=== PATIENT | female | born 1960 | race Caucasian/White ===

== ENCOUNTER 2017-07-25 23:14 | Outpatient (CLI) | payer BC | END 2017-07-25 23:15 | disposition critical access hospital (66) | LOC: EMS 23:14 | PROVIDERS: ATTEND Surgery | DX: R10.9 Unspecified abdominal pain (principal); R11.2 Nausea with vomiting, unspecified | CPT/HCPCS: A0425; A0427 ==

== ENCOUNTER 2017-07-25 23:30 | Observation (INO) | payer BC ==
--- NOTE | 2017-07-25 23:58 | ED Physician Documentation ---
PD HPI ABD PAIN - Stated complaint Stated Complaint: R LQ ABD PN - Chief complaint Chief Complaint: Abd Pain - History obtained from History obtained from: Patient - History of Present Illness Timing - onset: How many hours ago (about 4), Today Timing - duration: Hours (4) Timing - details: Gradual onset, Still present Quality: Cramping, Aching, Pain Location: Periumbilical, RLQ Radiation: No: Lower back, Left flank, Right flank Improved by: Vomiting Worsened by: Position, Palpation. No: Moving, Breathing Associated symptoms: Nausea, Vomiting, Loss of appetite (today). No: Fever, Diarrhea, Constipation (had BM daily in the recent past; BM earlier today without problems.), Dysuria, Chest pain, Vaginal bleeding, Vaginal dc Similar symptoms before: Has not had sx before Recently seen: Not recently seen Review of Systems Constitutional: denies: Fever, Chills, Myalgias Nose: denies: Rhinorrhea / runny nose, Congestion Throat: denies: Sore throat Respiratory: denies: Cough GI: reports: Abdominal Pain, Nausea, Vomiting. 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 ) HEENT: Tonsil/Adenoidectomy - Present Medications Home Medications: Ambulatory Orders Medication Instructions Recorded Confirmed Sertraline [Zoloft] 25 mg PO DAILY 07/25/17 07/25/17 - Allergies Allergies/Adverse Reactions: Allergies Allergy/AdvReac Type Severity Reaction Status Date / Time No Known Drug Allergies Allergy Verified 07/25/17 23:35 - Social History Does the pt smoke?: No Smoking Status: Never smoker Does the pt drink ETOH?: Yes Does the pt have substance abuse?: No - Family History Family history: reports: Non contributory - Immunizations Immunizations are current?: Yes PD ED PE NORMAL - Vitals Vital signs reviewed: Yes - General General: Alert and oriented X 3, Well developed/nourished, Other (appears in pain and is dry heaving) - HEENT HEENT: Atraumatic, Pharynx benign - Neck Neck: Supple, no meningeal sign, No adenopathy - Cardiac Cardiac: RRR, No murmur - Respiratory Respiratory: Clear bilaterally - Abdomen Abdomen: Soft, Non distended, No organomegaly, Other (active bowel sounds. Tender mid abdomen and lower too, right more than left. No percussion tenderness. ) - Female Female : Deferred - Rectal Rectal: Deferred - Back Back: No CVA TTP - Derm Derm: Normal color - Extremities Extremities: No deformity, No tenderness to palpate, No edema, No calf tenderness / cord - Neuro Neuro: Alert and oriented X 3, No motor deficit, Normal speech Results - Vitals Vitals: Vital Signs - 24 hr 07/25/17 07/26/17 23:31 02:04 Temperature 36.0 C L Heart Rate 63 60 Respiratory 14 14 Rate Blood Pressure 111/65 101/53 L O2 Saturation 100 92 Oxygen O2 Source Room air - Labs Labs: Laboratory Tests 07/25/17 07/25/17 07/26/17 23:00 23:00 01:10 WBC 15.2 H RBC 3.99 L Hgb 12.7 Hct 38.0 MCV 95.2 MCH 31.7 H MCHC 33.3 RDW 13.9 Plt Count 219 MPV 10.2 Neut # 12.9 H Lymph # 1.4 L [place] # 0.8 Eos # 0.0 Baso # 0.1 Absolute Nucleated RBC 0.00 Nucleated RBCs 0.0 Sodium 141 Potassium 3.2 L Chloride 104 Carbon Dioxide 26 Anion Gap 11.0 BUN 12 Creatinine 0.8 Estimated GFR (MDRD) 74 L Glucose 137 H Calcium 9.5 Total Bilirubin 0.3 AST 26 ALT 20 Alkaline Phosphatase 45 Total Protein 6.9 Albumin 4.4 Globulin 2.5 Albumin/Globulin Ratio 1.8 Lipase 29 Urine Color YELLOW Urine Clarity CLEAR Urine pH 6.5 Ur Specific [place] 1.020 Urine Protein NEGATIVE Urine Glucose (UA) NEGATIVE Urine Ketones >=80 H Urine Occult Blood TRACE-INTA Urine Nitrite NEGATIVE Urine Bilirubin NEGATIVE Urine Urobilinogen 0.2 (NORMAL) Ur Leukocyte Esterase NEGATIVE Ur Microscopic Review NOT INDICATED Urine Culture Comments NOT INDICATED - Rads (name of study) abd CT Radiology: Prelim report reviewed (suspicious for early/partial distal small bowel obstruction. also 5x3x5 cm fibroid in uterus. ) PD MEDICAL DECISION MAKING - ED course Complexity details: reviewed results, re-evaluated patient (improved symptoms with still some tenderness mid abdomen. ), considered differential (no signs of kidney stones on CT, no free fluid. Appendix seems okay. There is sign of partial SBO per [facility]. Will place in OBS to see how she does with NPO and fluids /pain meds for treatment. ), d/w patient, d/w golf tournament consultant (hospitalist) Departure - Departure Disposition: 01 Home, Self Care Clinical Impression: Partial small bowel obstruction Abdominal pain Qualifiers: Abdominal location: generalized Qualified Code(s): R10.84 - Generalized abdominal pain Vomiting Qualifiers: Vomiting type: unspecified Vomiting Intractability: non-intractable Nausea presence: with nausea Qualified Code(s): R11.2 - Nausea with vomiting, unspecified Condition: Stable Record reviewed to determine appropriate education?: Yes
[2017-07-26] MEDS ORDERED: ONDANSETRON 4 MG/2 ML VIAL IVP STA (00:30)
[2017-07-26] MEDS ORDERED: SODIUM CHLORIDE 0.9% 1,000 ML IV ONE ×2 (00:30→03:04)
[2017-07-26] MEDS ORDERED: HYDROmorphone 1 MG/ML CARPUJECT IVP STA ×2 (00:30→01:05)
[2017-07-26] MEDS ORDERED: ONDANSETRON 4 MG/2 ML VIAL ONE (00:41)
[2017-07-26] MEDS ORDERED: HYDROmorphone 1 MG/ML CARPUJECT ONE ×2 (00:41→01:20)
[2017-07-26 00:42] LABS: BASOPHILS # (AUTO) 0.1 10^3/uL (0.0-0.1); BASOPHILS % (AUTO) 0.4 %; EOSINOPHILS % (AUTO) 0.1 %; HGB - HEMOGLOBIN 12.7 g/dL (12.0-16.0); LYMPHOCYTES # (AUTO) 1.4 10^3/uL (1.5-3.5); LYMPHOCYTES % (AUTO) 9.4 %; MEAN CORPUSCULAR HEMOGLOBIN 31.7 pg (27.0-31.0); MEAN CORPUSCULAR HGB CONC 33.3 g/dL (32.0-36.0); MEAN CORPUSCULAR VOLUME 95.2 fL (81.0-99.0); MEAN PLATELET VOLUME 10.2 fL (7.9-10.8); MONOCYTES # (AUTO) 0.8 10^3/uL (0.0-1.0); MONOCYTES % (AUTO) 5.2 %; NEUTROPHILS # (AUTO) 12.9 10^3/uL (1.5-6.6); NEUTROPHILS % (AUTO) 84.9 %; RED BLOOD COUNT 3.99 10^6/uL (4.20-5.40); RED CELL DISTRIBUTION WIDTH 13.9 % (12.0-15.0); UNCORRECTED WHITE BLOOD COUNT 15.2 x10^3/uL; WHITE BLOOD COUNT 15.2 x10^3/uL (4.8-10.8)
[2017-07-26 01:04] LABS: ALBUMIN/GLOBULIN RATIO 1.8 (1.0-2.2); BILIRUBIN,TOTAL 0.3 mg/dL (0.2-1.0); CALCIUM 9.5 mg/dL (8.5-10.3); CREATININE 0.8 mg/dL (0.4-1.0); POTASSIUM 3.2 mmol/L (3.5-5.0); TOTAL PROTEIN 6.9 g/dL (6.7-8.2)
[2017-07-26] MEDS ORDERED: IOPAMIDOL-300 100 ML VIAL ONE (01:11)
[2017-07-26 01:22] LABS: BILIRUBIN,URINE NEGATIVE (NEGATIVE); PH,URINE 6.5 PH (5.0-7.5)
[2017-07-26 01:32] LABS: UA CHARGE (STRIP ONLY) YES; UR CULTURE IF IND NOT INDICATED
[2017-07-26] MEDS ORDERED: IOPAMIDOL-300 100 ML VIAL IVP ONE (01:38)
--- NOTE | 2017-07-26 02:01 | CT Preliminary Report ---
Exam: CT Abdomen/Pelvis W/ IMPRESSION: 1. Findings suspicious for early/partial distal small bowel obstruction. Only minimal mesenteric colten a without bowel wall thickening seen. 2. Approximately 5 x 3 x 5 cm anterior uterine mass which displaces the endometrial cavity posteriorl y. Suspect this is a hypervascular fibroid. Nonemergent pelvic ultrasound suggested for further evalu ation. [facility] SITE ID: [id number]
--- NOTE | 2017-07-26 02:07 | CT Report ---
EXAM: CT ABDOMEN AND PELVIS EXAM DATE: 07/26/2017 01:42 AM. CLINICAL HISTORY: Lower/right abdominal pain. COMPARISONS: None. TECHNIQUE: Routine helical CT imaging was performed through the abdomen and pelvis. IV contrast: Yes . Enteric contrast: No . Reconstructions: Coronal and sagittal. In accordance with CT protocol optimization, one or more of the following dose reduction techniques w ere utilized for this exam: automated exposure control, adjustment of mA and/or KV based on patient s ize, or use of iterative reconstructive technique. FINDINGS: Lung Bases: Unremarkable. Liver: Unremarkable. No suspicious masses. Gallbladder/Bile Ducts: Unremarkable. Spleen: Unremarkable. Pancreas: Unremarkable. Adrenal Glands: Unremarkable. Kidneys: Unremarkable. No suspicious masses or hydronephrosis. Peritoneal Cavity/Bowel: Distended stool filled distal small bowel loops in the central and right pel vis without wall thickening and only minimal mesenteric edema. Discrete transition not seen but there made of partial distal bowel obstruction. Bowel otherwise appears unremarkable. Appendix is not visu alized. No free air or fluid. Pelvic Organs: Hypervascular mass centrally within the anterior aspect of the uterus and displacing t he endometrial cavity posteriorly on the sagittal views. This measures approximately 5 x 3 x 5 cm. No suspicious adnexal masses. Urinary bladder appears decompressed but otherwise unremarkable. Vasculature: No aneurysms or other significant abnormality. Bones: No significant abnormality. Other: None. IMPRESSION: 1. Findings suspicious for early/partial distal small bowel obstruction. Only minimal mesenteric colten a without bowel wall thickening seen. 2. Approximately 5 x 3 x 5 cm anterior uterine mass which displaces the endometrial cavity posteriorl y. Suspect this is a hypervascular fibroid. Nonemergent pelvic ultrasound suggested for further evalu ation. [facility] Referring Provider Line: [phone] SITE ID: [id number]
[2017-07-26] MEDS ORDERED: ACETAMINOPHEN 325 MG TABLET PO PRN (02:31)
[2017-07-26] MEDS ORDERED: PROCHLORPERAZINE 10 MG/2 ML VIAL IVP PRN (02:31)
[2017-07-26] MEDS ORDERED: HYDROmorphone 1 MG/ML CARPUJECT IVP PRN (02:31)
[2017-07-26] MEDS ORDERED: oxyCODONE 5 MG TABLET PO PRN (02:31)
[2017-07-26] MEDS ORDERED: SODIUM CHLORIDE FLUSH 0.9% 10 ML SYRINGE IVP PRN (02:31)
--- NOTE | 2017-07-26 02:43 | HISTORY & PHYSICAL EXAMINATION ---
Chief Complaint - Chief Complaint Chief Complaint: Abdominal Pain History of Present Illness - Admitted From Admitted From:: Emergency Department - History Obtained From Records Reviewed: Yes History obtained from: Patient Exam Limitations: None - History of Present Illness HPI Comment/Other: Patient is a 57-year-old female with a past medical history significant for anxiety, depression, GERD, sinusitis and history of skin cancer status post excision who presented to the emergency department with a chief complaint of abdominal pain. The patient states that she was in her normal state of health until about 3 days ago when she states that she started feeling tenderness in her breasts and a cramping abdominal pain in the morning. She states the cramping would come and go over the next 3 days but was never very severe. She states that she felt as though she was about to get her period which she thought was odd because she had not had a period for a year and a half. The patient states that this morning she was in her normal state of health and felt great until 730 this evening. She states that she ate some corn chips and guacamole and then had gone for a walk. She states that during the walk she felt very gassy but was not having any pain at that time. She states that when she returned from her walk she felt some abdominal discomfort and therefore only had a small amount of her dinner and a glass of wine. She states that a little later in the evening she began having abdominal pain. She states it was located in the lower abdomen and then became more localized in the right lower quadrant of the abdomen. She states that it continued to be a cramping pain and was initially coming in waves but then became increasingly intense and constant. She states that she began to feel nauseated and the pain was so severe she could not get up out of bed. Eventually she decided to call EMS. She states that when EMS arrived she had an episode of emesis. Then she states in route to the hospital she had multiple episodes of emesis and continued to have this right lower quadrant abdominal pain. The patient states that her last bowel movement was yesterday however she did have a large bowel movement right before she went for CT scan in the emergency department tonight. She states the bowel movement was well formed and and there was no blood or dark stools. The patient denies any headaches, blurred vision, she does admit to some nasal congestion and sinusitis that has been bothering her for the last 4 months, she also admits to fullness in her left year also has been bothering her for the last month. She denies any fevers or chills, chest pain, orthopnea, PND, increased lower extremity swelling, shortness of air, diarrhea, urinary urgency , urinary frequency, dysuria, joint pains, muscle aches, neck stiffness or any focal neurologic deficits. On presentation to the emergency department the patient was afebrile and vital signs were stable. The patient did appear to be in significant distress secondary to abdominal pain and nausea. The patient underwent routine lab work which did reveal a leukocytosis of 15.2 and that the patient was hypokalemic with a potassium of 3.2. The patient's UA was negative. The patient was given IV fluids, antiemetics and IV pain medication in the emergency department. The patient states that she did feel better with the treatment but was continuing to have some abdominal discomfort and was still not feeling well. The patient underwent a CT of her abdomen and pelvis which revealed early/partial distal small bowel obstruction with only minimal mesenteric edema and no bowel wall thickening. Patient was also found to have a 535 cm anterior uterine mass which was displacing the endometrial cavity posteriorly. The patient was placed in observation for a small bowel obstruction. History - Past Medical History Cardiovascular: reports: None Respiratory: reports: None Neuro: reports: None Endocrine/Autoimmune: reports: None GI: reports: GERD VEGETABLE GROWER: reports: None : reports: None HEENT: reports: Chronic sinusitis Psych: reports: Depression, Anxiety Musculoskeletal: reports: None Derm: reports: Other (Skin cancer status post excision) - Past Surgical History /VEGETABLE GROWER: reports: Other (Uterine Firbroidectomy) HEENT: reports: Tonsil/Adenoidectomy - Family & Social History Family History: Mother: (Mother and father both lived to be 91 years old), Cancer (Breast cancer and melanoma), Father: , Alzheimer's Disease Living arrangement: At home Living Situation: With spouse/s.o. Social History Notes: The patient is originally from [place] but moved to [place] about 20 years ago. She lives in [place] with her . She does not have any children. She is visiting [facility] for a retreat. She is active and does yoga, walks the dog daily for an hour and eats very healthy. The patient has never smoked, she does drink socially and she denies any illicit drug use - Substance History Use: Uses substance without health or social issues: NONE Abuse: Recurrent use of substance despite neg consequences: NONE Dependence: Experiences withdrawal or developed tolerances: NONE - POLST Patient has POLST: No POLST Status: Full Code Meds/Allgy - Home Medications Home Medications: Ambulatory Orders Medication Instructions Recorded Confirmed Sertraline [Zoloft] 25 mg PO DAILY 07/25/17 07/25/17 - Allergies Allergies/Adverse Reactions: Allergies Allergy/AdvReac Type Severity Reaction Status Date / Time No Known Drug Allergies Allergy Verified 07/25/17 23:35 Review of Systems - Other Findings Other Findings: A comprehensive review of systems was performed the pertinent positives and negatives are stated above in the HPI and the remainder of the review of systems is negative. Exam - Vital Signs Reviewed Vital Signs: Yes Vital Signs: Vital Signs x48h Temp Pulse Resp BP Pulse Ox 07/26/17 02:04 60 14 101/53 L 92 07/25/17 23:31 36.0 C L 63 14 111/65 100 - Physical Exam General Appearance: positive: Alert, Mild distress (abdominal pain) Eyes Bilateral: positive: Normal inspection, PERRL, EOMI, No lid inflammation, Conjunctivae nml, No scleral icterus ENT: positive: ENT inspection nml, Pharynx nml, Dry mucous membranes. negative : Purulent nasal drainage, Pharyngeal erythema, Oral lesions Neck: positive: Nml inspection, Thyroid nml, No JVD, Trachea midline. negative : Thyromegaly, Lymphadenopathy (R), Lymphadenopathy (L), Stiff neck, Carotid bruit, Tracheal deviation Respiratory: positive: Chest non-tender, No respiratory distress, Breath sounds nml. negative: Wheezes, Rales, Rhonchi Cardiovascular: positive: Regular rate & rhythm, No murmur, No gallop Peripheral Pulses: positive: 2+ Abdomen: positive: Tenderness (Lower abdomen mostly in the pelvic area and right lower quadrant), Abnml bowel sounds (Decreased). negative: Guarding, Rebound, Hepatomegaly Back: positive: Nml inspection. negative: CVA tenderness (R), CVA tenderness (L ) Skin: positive: Color nml, No rash, Warm. negative: Cyanosis, Pallor Extremities: positive: Non-tender, Full ROM, Nml appearance, No pedal edema Neurologic/Psychiatric: positive: Oriented x3, CN's nml (2-12), Motor nml, Sensation nml, Mood/affect nml Conclusion/Plan - Problem List (1) Small bowel obstruction Conclusion/Plan: The patient presented with abdominal pain in the right lower quadrant. She described as a cramping pain associated with nausea and several episodes of vomiting. Patient was found to have a early/partial small bowel obstruction on CT scan. Patient did have some improvement with IV fluids, IV pain medications and IV antiemetics however the patient was still having pain and tender on exam. She was placed in observation for small bowel obstruction. Plan: IV fluids N.p.o. except meds IV pain medications IV antiemetics Encourage patient to ambulette Advance diet once patient's improving (2) Hypokalemia Conclusion/Plan: Patient presented with a potassium of 3.2 Replace potassium with IV fluid. Monitor potassium (3) Uterine mass Conclusion/Plan: Patient found to have incidental uterine mass on CT scan appears likely to be a fibroid. This is unlikely to be the cause of her abdominal pain. It was recommended that the patient get a nonemergent pelvic ultrasound. Plan: Pelvic ultrasound (4) Depression Conclusion/Plan: Patient has history of depression and anxiety she uses Zoloft at home. We will continue patient's home dose of Zoloft (5) Prophylactic use of low molecular weight heparin for venous thromboembolism (VTE) Conclusion/Plan: Place patient on Lovenox while she is hospitalized. - Lab Results Lab results reviewed: Yes Fish Bones: 07/25/17 23:00 07/25/17 23:00 Other Lab Results: Laboratory Results WBC 15.2 x10^3/uL (4.8-10.8) H 07/25/17 23:00 RBC 3.99 10^6/uL (4.20-5.40) L 07/25/17 23:00 Hgb 12.7 g/dL (12.0-16.0) 07/25/17 23:00 Hct 38.0 % (37.0-47.0) 07/25/17 23:00 MCV 95.2 fL (81.0-99.0) 07/25/17 23:00 MCH 31.7 pg (27.0-31.0) H 07/25/17 23:00 MCHC 33.3 g/dL (32.0-36.0) 07/25/17 23:00 RDW 13.9 % (12.0-15.0) 07/25/17 23:00 Plt Count 219 10^3/uL (130-450) 07/25/17 23:00 MPV 10.2 fL (7.9-10.8) 07/25/17 23:00 Neut # 12.9 10^3/uL (1.5-6.6) H 07/25/17 23:00 Lymph # 1.4 10^3/uL (1.5-3.5) L 07/25/17 23:00 [place] # 0.8 10^3/uL (0.0-1.0) 07/25/17 23:00 Eos # 0.0 10^3/uL (0.0-0.7) 07/25/17 23:00 Baso # 0.1 10^3/uL (0.0-0.1) 07/25/17 23:00 Absolute Nucleated RBC 0.00 x10^3/uL 07/25/17 23:00 Nucleated RBCs 0.0 /100WBC 07/25/17 23:00 Sodium 141 mmol/L (135-145) 07/25/17 23:00 Potassium 3.2 mmol/L (3.5-5.0) L 07/25/17 23:00 Chloride 104 mmol/L (101-111) 07/25/17 23:00 Carbon Dioxide 26 mmol/L (21-32) 07/25/17 23:00 Anion Gap 11.0 (6-13) 07/25/17 23:00 BUN 12 mg/dL (6-20) 07/25/17 23:00 Creatinine 0.8 mg/dL (0.4-1.0) 07/25/17 23:00 Estimated GFR (MDRD) 74 (>89) L 07/25/17 23:00 Glucose 137 mg/dL (70-100) H 07/25/17 23:00 Calcium 9.5 mg/dL (8.5-10.3) 07/25/17 23:00 Total Bilirubin 0.3 mg/dL (0.2-1.0) 07/25/17 23:00 AST 26 IU/L (10-42) 07/25/17 23:00 ALT 20 IU/L (10-60) 07/25/17 23:00 Alkaline Phosphatase 45 IU/L (42-121) 07/25/17 23:00 Total Protein 6.9 g/dL (6.7-8.2) 07/25/17 23:00 Albumin 4.4 g/dL (3.2-5.5) 07/25/17 23:00 Globulin 2.5 g/dL (2.1-4.2) 07/25/17 23:00 Albumin/Globulin Ratio 1.8 (1.0-2.2) 07/25/17 23:00 Lipase 29 U/L (22-51) 07/25/17 23:00 Urine Color YELLOW 07/26/17 01:10 Urine Clarity CLEAR (CLEAR) 07/26/17 01:10 Urine pH 6.5 PH (5.0-7.5) 07/26/17 01:10 Ur Specific [place] 1.020 (1.002-1.030) 07/26/17 01:10 Urine Protein NEGATIVE mg/dL (NEGATIVE) 07/26/17 01:10 Urine Glucose (UA) NEGATIVE mg/dL (NEGATIVE) 07/26/17 01:10 Urine Ketones >=80 mg/dL (NEGATIVE) H 07/26/17 01:10 Urine Occult Blood TRACE-INTA (NEGATIVE) 07/26/17 01:10 Urine Nitrite NEGATIVE (NEGATIVE) 07/26/17 01:10 Urine Bilirubin NEGATIVE (NEGATIVE) 07/26/17 01:10 Urine Urobilinogen 0.2 (NORMAL) E.U./dL (NORMAL) 07/26/17 01:10 Ur Leukocyte Esterase NEGATIVE (NEGATIVE) 07/26/17 01:10 Ur Microscopic Review NOT INDICATED 07/26/17 01:10 Urine Culture Comments NOT INDICATED 07/26/17 01:10 - Diagnostic Imaging Results Diagnostic Imaging Results: positive: Final report reviewed Diagnostic Imaging Results Comments: CT abdomen/pelvis Impression: 1. Findings suspicious for early/partial distal small bowel obstruction. Only minimal mesenteric edema without bowel wall thickening seen. 2. Approximately 535 cm anterior uterine mass which displaces the endometrial cavity posteriorly. Suspect this is a hyper vascular fibroid. Nonemergent pelvic ultrasound suggested for further evaluation. - EKG Results EKG Interpreted Independently: No Issues/Core Measures - Anticipated LOS Anticipated Stay Length: Less than 2 midnights - DVT/VTE - Prophylaxis VTE/DVT Prophylaxis med ordered at admit?: Yes
[2017-07-26] MEDS: ONDANSETRON 4 MG/2 ML VIAL IVP PRN ×2 (03:57→14:59)
[2017-07-26] MEDS: SODIUM CHLORIDE FLUSH 0.9% 10 ML SYRINGE IVP SCH ×2 (03:58→14:57)
[2017-07-26] MEDS: NS W/20 MEQ KCL 1,000 ML IV SCH ×2 (04:02→14:57)
[2017-07-26 05:47] LABS: BASOPHILS % (AUTO) 0.2 %; HGB - HEMOGLOBIN 11.7 g/dL (12.0-16.0); LYMPHOCYTES # (AUTO) 0.6 10^3/uL (1.5-3.5); MEAN CORPUSCULAR HEMOGLOBIN 32.3 pg (27.0-31.0); MEAN CORPUSCULAR HGB CONC 34.3 g/dL (32.0-36.0); MEAN CORPUSCULAR VOLUME 94.4 fL (81.0-99.0); MEAN PLATELET VOLUME 9.1 fL (7.9-10.8); MONOCYTES # (AUTO) 0.3 10^3/uL (0.0-1.0); MONOCYTES % (AUTO) 2.7 %; NEUTROPHILS # (AUTO) 10.5 10^3/uL (1.5-6.6); NEUTROPHILS % (AUTO) 92.1 %; RED BLOOD COUNT 3.61 10^6/uL (4.20-5.40); RED CELL DISTRIBUTION WIDTH 13.7 % (12.0-15.0); UNCORRECTED WHITE BLOOD COUNT 11.4 x10^3/uL; WHITE BLOOD COUNT 11.4 x10^3/uL (4.8-10.8)
[2017-07-26 06:00] LABS: ALBUMIN/GLOBULIN RATIO 1.8 (1.0-2.2); BILIRUBIN,TOTAL 0.5 mg/dL (0.2-1.0); CALCIUM 8.3 mg/dL (8.5-10.3); CREATININE 0.6 mg/dL (0.4-1.0); MAGNESIUM 1.7 mg/dL (1.7-2.8); PHOSPHORUS 3.6 mg/dL (2.5-4.6); POTASSIUM 4.1 mmol/L (3.5-5.0); TOTAL PROTEIN 6.1 g/dL (6.7-8.2)
[2017-07-26 08:01] LABS: HEMOGLOBIN A1C 0.43 g/dL
[2017-07-26 08:29] LABS: THYROID STIMULATING HORMONE 1.67 uIU/mL (0.34-5.60)
[2017-07-26] MEDS ORDERED: SERTRALINE 25 MG TABLET PO SCH (09:00)
[2017-07-26] MEDS ORDERED: FAMOTIDINE 20 MG TABLET PO SCH (09:00)
[2017-07-26] MEDS ORDERED: ENOXAPARIN 40 MG/0.4 ML SYRINGE SUBQ SCH (09:00)
[2017-07-26] MEDS ORDERED: POLYETHYLENE GLYCOL 3350 17 GM PACKET PO SCH (09:00)
[2017-07-26] MEDS ORDERED: MAGNESIUM SULFATE 2 GRAM 50 ML IV ONE (10:00)
[2017-07-26] MEDS: oxyCODONE 5 MG TABLET PO PRN ×2 (10:12→15:00)
--- NOTE | 2017-07-26 11:43 | Discharge Plan ---
Discharge Plan Disposition: Home, Self Care Condition: Good Prescriptions: oxyCODONE [Roxicodone] 5 mg PO Q4HR PRN #24 tablet PRN Reason: Pain 5 to 7 Ondansetron Odt [Zofran] 4 mg TL Q6H PRN #10 tablet PRN Reason: Nausea / Vomiting Diet: Regular Activity Restrictions: No Restrictions Shower Restrictions: No Driving Restrictions: No Weight Bearing: Full Weight Instruction Topics: Fibroids, Ultrasound Uterine About Additional Instructions or Follow Up instructions: PLEASE CONTINUE TO TAKE YOUR HOME MEDICATIONS PRESCRIBED. YOU HAVE BEEN GIVEN A PRESCRIPTION FOR PAIN MEDICATION. DO NOT DRIVE WHEN TAKING. YOU HAVE BEEN GIVEN ZOFRAN FOR NAUSEA. PLEASE SEE YOUR PRIMARY CARE PROVIDER WITHIN ONE WEEK OF DISCHARGE. YOU WILL NEED TO SEE A SALAD CHEF FOR THE OVARIAN CYST AND FIBROIDS. CONTINUE TO FOLLOW A HEART HEALTHY LOW FAT DIET DRINK PLENTY OF WATER DAILY AND GET PLENTY OF REST RETURN TO THE ER IF SYMPTOMS GET WORSE OR REOCCUR. CALL 911 IF YOU HAVE CHEST PAIN OR SHORTNESS OF BREATH No Smoking: If you smoke, Please STOP! Call for help.
--- NOTE | 2017-07-26 11:45 | DISCHARGE SUMMARY ---
"Discharge Summary Admit Date: 07/26/17 Discharge Date: 07/26/17 Discharging Provider: RAYMOND WILSON Code Status: Attempt Resuscitation Condition at Discharge: Good Discharge Disposition: 01 Home, Self Care Discharge Facility Name: HOME - DIAGNOSES Admission Diagnoses: 1. ACUTE ABDOMINAL PAIN IN THE RIGHT LOWER QUADRANT WITH POSSIBLE SMALL BOWEL OBSTRUCTION 2. CHRONIC DEPRESSION, UNSPECIFIED 3. POSSIBLE ACUTE FIBROID IN UTERUS SEEN ON CT 4. ACUTE HYPOKALEMIA Discharge Diagnoses with Status of Each Condition: 1. ACUTE ABDOMINAL PAIN IN THE RIGHT LOWER QUADRANT WITH POSSIBLE SMALL BOWEL OBSTRUCTION 2. CHRONIC DEPRESSION DISORDER , UNSPECIFIED 3. ACUTE HYPERVASCULAR 6.7CM FIBROID IN ANTERIOR UTERUS SEEN ON CT AND PELVIC ULTRASOUND 4. ACUTE HYPOKALEMIA - HPI History of Present Illness: History of Present Illness HPI Comment/Other: Patient is a 57-year-old female with a past medical history significant for anxiety, depression, GERD, sinusitis and history of skin cancer status post excision who presented to the emergency department with a chief complaint of abdominal pain. The patient states that she was in her normal state of health until about 3 days ago when she states that she started feeling tenderness in her breasts and a cramping abdominal pain in the morning. She states the cramping would come and go over the next 3 days but was never very severe. She states that she felt as though she was about to get her period which she thought was odd because she had not had a period for a year and a half. The patient states that this morning she was in her normal state of health and felt great until 730 this evening. She states that she ate some corn chips and guacamole and then had gone for a walk. She states that during the walk she felt very gassy but was not having any pain at that time. She states that when she returned from her walk she felt some abdominal discomfort and therefore only had a small amount of her dinner and a glass of wine. She states that a little later in the evening she began having abdominal pain. She states it was located in the lower abdomen and then became more localized in the right lower quadrant of the abdomen. She states that it continued to be a cramping pain and was initially coming in waves but then became increasingly intense and constant. She states that she began to feel nauseated and the pain was so severe she could not get up out of bed. Eventually she decided to call EMS. She states that when EMS arrived she had an episode of emesis. Then she states in route to the hospital she had multiple episodes of emesis and continued to have this right lower quadrant abdominal pain. The patient states that her last bowel movement was yesterday however she did have a large bowel movement right before she went for CT scan in the emergency department tonight. She states the bowel movement was well formed and and there was no blood or dark stools. The patient denies any headaches, blurred vision, she does admit to some nasal congestion and sinusitis that has been bothering her for the last 4 months, she also admits to fullness in her left year also has been bothering her for the last month. She denies any fevers or chills, chest pain, orthopnea, PND, increased lower extremity swelling, shortness of air, diarrhea, urinary urgency , urinary frequency, dysuria, joint pains, muscle aches, neck stiffness or any focal neurologic deficits. On presentation to the emergency department the patient was afebrile and vital signs were stable. The patient did appear to be in significant distress secondary to abdominal pain and nausea. The patient underwent routine lab work which did reveal a leukocytosis of 15.2 and that the patient was hypokalemic with a potassium of 3.2. The patient's UA was negative. The patient was given IV fluids, antiemetics and IV pain medication in the emergency department. The patient states that she did feel better with the treatment but was continuing to have some abdominal discomfort and was still not feeling well. The patient underwent a CT of her abdomen and pelvis which revealed early/partial distal small bowel obstruction with only minimal mesenteric edema and no bowel wall thickening. Patient was also found to have a 535 cm anterior uterine mass which was displacing the endometrial cavity posteriorly. The patient was placed in observation for a small bowel obstruction. - CONSULTS | PROCEDURES Consultations: NONE Procedures: CT OF ABDOMEN AND PELVIS Impression: 1. Findings suspicious for early/partial distal small bowel obstruction. Only minimal mesenteric edema without bowel wall thickening seen. 2. Approximately 535 cm anterior uterine mass which displaces the endometrial cavity posteriorly. Suspect this is a hyper vascular fibroid. Nonemergent pelvic ultrasound suggested for further evaluation. PELVIC ULTRASOUND LARGE HYPERVASCULAR ANTERIOR UTERINE FIBROID AND 3 CYST LIKE MASS IN THE LEFT OVARY PROBABLY BENIGN - HOSPITAL COURSE Hospital Course: HOSPITAL COURSE AND TREATMENT (1) Small bowel obstruction The patient presented with abdominal pain in the right lower quadrant. She described as a cramping pain associated with nausea and several episodes of vomiting. Patient was found to have a early/partial small bowel obstruction on CT scan. Patient did have some improvement with IV fluids, IV pain medications and IV antiemetics. She was placed in observation for small bowel obstruction. N.p.o. except meds.EncourageD patient to ambulate. Advanced diet once patient's improving (2) Hypokalemia Patient presented with a potassium of 3.2. Replaced potassium with IV fluid. Improved and Monitored potassium (3) Uterine mass Patient found to have incidental uterine mass on CT scan appears likely to be a fibroid. This is unlikely to be the cause of her abdominal pain. It was recommended that the patient get a nonemergent pelvic ultrasound. results discussed above (4) Depression Patient has history of depression and anxiety she uses Zoloft at home. We continued patient's home dose of Zoloft (5) Prophylactic use of low molecular weight heparin for venous thromboembolism (VTE) Placed patient on Lovenox while she was hospitalized. - ALLERGIES Allergies/Adverse Reactions: Allergies Allergy/AdvReac Type Severity Reaction Status Date / Time No Known Drug Allergies Allergy Verified 07/25/17 23:35 - MEDICATIONS Home Medications: Ambulatory Orders Medication Instructions Recorded Confirmed Sertraline [Zoloft] 25 mg PO DAILY 07/25/17 07/25/17 Ondansetron Odt [Zofran] 4 mg TL Q6H PRN #10 tablet 07/26/17 Polyethylene Glycol 3350 [Miralax] 17 gm PO DAILY packet 07/26/17 oxyCODONE [Roxicodone] 5 mg PO Q4HR PRN #24 tablet 07/26/17 - PHYSICAL EXAM AT DISCHARGE General Appearance: positive: No acute distress, Alert Eyes Bilateral: positive: Normal inspection, PERRL, EOMI ENT: positive: ENT inspection nml, Pharynx nml, No signs of dehydration Neck: positive: Nml inspection, Thyroid nml, No JVD, Trachea midline Respiratory: positive: Chest non-tender, No respiratory distress, Breath sounds nml Cardiovascular: positive: Regular rate & rhythm, No murmur, No gallop Peripheral Pulses: positive: 2+ Abdomen: positive: No organomegaly, Nml bowel sounds, No distention, Tenderness (RIGHT LOWER QUADRANT AND PELVIC REGION). negative: Guarding, Rebound Back: positive: Nml inspection Skin: positive: Color nml, No rash, Warm Extremities: positive: Non-tender, Full ROM, Nml appearance, No pedal edema Neurologic/Psychiatric: positive: Oriented x3, CN's nml (2-12), Motor nml, Sensation nml, Mood/affect nml - LABS Result Diagrams: 07/26/17 05:41 07/26/17 05:41 Other Lab Results: Abnormal Lab Results 07/25/17 07/25/17 07/26/17 23:00 23:00 01:10 WBC 15.2 x10^3/uL H x10^3/uL (4.8-10.8) RBC 3.99 10^6/uL L 10^6/uL (4.20-5.40) Hgb Hct MCH 31.7 pg H pg (27.0-31.0) Neut # 12.9 10^3/uL H 10^3/uL (1.5-6.6) Lymph # 1.4 10^3/uL L 10^3/uL (1.5-3.5) Potassium 3.2 mmol/L L mmol/L (3.5-5.0) Estimated GFR (MDRD) 74 L (>89) Glucose 137 mg/dL H mg/dL (70-100) Estim Average Glucose Calcium Total Protein Urine Ketones >=80 mg/dL H mg/dL (NEGATIVE) 07/26/17 07/26/17 07/26/17 05:41 05:41 07:38 WBC 11.4 x10^3/uL H x10^3/uL (4.8-10.8) RBC 3.61 10^6/uL L 10^6/uL (4.20-5.40) Hgb 11.7 g/dL L g/dL (12.0-16.0) Hct 34.0 % L % (37.0-47.0) MCH 32.3 pg H pg (27.0-31.0) Neut # 10.5 10^3/uL H 10^3/uL (1.5-6.6) Lymph # 0.6 10^3/uL L 10^3/uL (1.5-3.5) Potassium Estimated GFR (MDRD) Glucose 145 mg/dL H mg/dL (70-100) Estim Average Glucose 108 H (70-100) Calcium 8.3 mg/dL L mg/dL (8.5-10.3) Total Protein 6.1 g/dL L g/dL (6.7-8.2) Urine Ketones - DIAGNOSTIC IMAGING Diagnostic Imaging Results: Prelim report reviewed Diagnostic Imaging Results Comments: PELVIC ULTRASOUND: A LARGE HYPERVASCULAR FIBROID ANTERIOR UTERUS AND 3 CYSTLIKE MASS IN THE RIGHT OVARY PROBABLY BENIGN - FOLLOW UP Follow Up: PATIENT WAS INSTRUCTED TO CONTINUE TO TAKE ALL HOME MEDICATIONS PRESCRIBED AND TO SEE HER PRIMARY CARE PROVIDER THIS WEEK. SHE VERBALLY UNDERSTOOD THE INSTRUCTIONS SHE WAS TO GO HOME WITH FAMILY AND WAS GIVEN RESULTS TO THE ULTRASOUND [place]CE [place] AND [place] VISITING - TIME SPENT Time Spent in Discharge (Minutes): 43 (DISCHARGE ASSESSMENT PLANNING AND EDUCATION)"
--- NOTE | 2017-07-26 13:35 | Ultrasound Preliminary Report ---
Exam: US Pelvic Complete - Non OB IMPRESSION: 1. Hypervascular anterior uterine mass measuring up to 5.7 cm in diameter. This most likely represent s a hypervascular fibroid. If further characterization is desired, a nonurgent MRI can be performed. 2. 3 cystic structures in the left ovary with the largest measuring up to 2.1 cm in diameter. These a re almost certainly benign and follow-up ultrasound could be performed in one year to evaluate for st ability. 3. Nabothian cyst. [facility] SITE ID: [id number]
--- NOTE | 2017-07-26 13:38 | Ultrasound Report ---
EXAM: PELVIC ULTRASOUND EXAM DATE: 07/26/2017 09:39 AM. CLINICAL HISTORY: Uterine mass seen on CT. Characterization requested. COMPARISON: CT abdomen and pelvis dated 07/26/2017. TECHNIQUE: Realtime transabdominal pelvic scan performed to identify the uterus and adnexa and as an overview of other pelvic structures, with static image documentation. FINDINGS: Uterus: 11.2 x 4.9 x 6.7 cm, volume 193.3 cc. Anteverted position. Appears mildly heterogeneous. Masses: Hypervascular anterior uterine mass measuring 5.7 x 3.6 x 4.9 cm. Endometrium: 3.6 mm. Displaced posteriorly. Cervix: Nabothian cyst visualized. Right Ovary: 2.6 x 1.2 x 1.4 cm, volume 2.3 cc. Normal echotexture and blood flow. Left Ovary: 4.4 x 2.0 x 2.8 cm, volume 12.6 cc. Normal echotexture and blood flow. Contains 3 cystic structures with the largest measuring 2.1 x 1.6 x 2.1 cm. Free Fluid: None. Other: None. IMPRESSION: 1. Hypervascular anterior uterine mass measuring up to 5.7 cm in diameter. This most likely represent s a hypervascular fibroid. If further characterization is desired, a nonurgent MRI can be performed. 2. 3 cystic structures in the left ovary with the largest measuring up to 2.1 cm in diameter. These a re almost certainly benign and follow-up ultrasound could be performed in one year to evaluate for st ability. 3. Nabothian cyst. [facility] Referring Provider Line: [phone] SITE ID: [id number]
[2017-07-26 14:21] VITALS: BP 118/52
== END 2017-07-26 19:00 | disposition home or self-care (01) ==
LOC: ED 23:30 → OBS 07-26 02:31
PROVIDERS: ADMIT Internal Medicine; ATTEND Nurse Practitioner
DX: K56.60 Unspecified intestinal obstruction (principal); F32.9 Major depressive disorder, single episode, unspecified; D25.9 Leiomyoma of uterus, unspecified; E87.6 Hypokalemia; R11.2 Nausea with vomiting, unspecified; F41.9 Anxiety disorder, unspecified; K21.9 Gastro-esophageal reflux disease without esophagitis; Z85.828 Personal history of other malignant neoplasm of skin
CPT/HCPCS: 36415; 74177; 76856; 80053; 81003; 83036; 83605; 83690; 83735; 84100; 84439; 84443; 84481; 85025; 96365; 96372; 96375; 96376; 99218; 99284; A9270; J1170; J1650; Q9967; 81001; 87086; 96374; 99283